=== PATIENT | male | born 1970 | race Caucasian/White ===

== ENCOUNTER 2019-11-19 17:07 | Outpatient (CLI) | payer OTHER, SELFPAY ==
[2019-11-20 14:58] LABS: SARS-CoV-2 RNA PCR Negative
== END 2019-11-19 17:08 | disposition home or self-care (01) ==
PROVIDERS: PCP Family Medicine; Visit Provider Family Medicine
DX: Z20.828 Contact with and (suspected) exposure to other viral communicable diseases (principal)
CPT/HCPCS: 87635; C9803; U0003

== ENCOUNTER 2019-12-20 15:03 | Outpatient (CLI) | payer OTHER, SELFPAY ==
--- NOTE | ~2019-12-20 | XR_ITS ---
EXAMINATION: XR thoracic spine 3V DATE: 12/20/2019 15:50 INDICATION: Intermittent upper back pain TECHNIQUE: AP and lateral views of the thoracic spine were obtained. COMPARISON: None. FINDINGS: There is no fracture, dislocation, or subluxation. The vertebral body heights and alignment are normal. There is mild loss of intervertebral disc space height at multiple levels in the thoraci c spine. Small degenerative osteophytes project from the anterior endplates of multiple vertebral bod ies. IMPRESSION: 1. Mild thoracic spondylosis without acute findings. Reviewed, dictated and finalized at location A.
== END 2019-12-20 15:04 | disposition home or self-care (01) ==
PROVIDERS: PCP Family Medicine; Visit Provider Family Medicine
DX: M54.6 Pain in thoracic spine (principal)
CPT/HCPCS: 72072

== ENCOUNTER 2020-10-30 15:13 | Emergency (ER) | payer OTHER, SELFPAY ==
--- NOTE | ~2020-10-30 | XR_ITS ---
XR ankle LT min 3V DATE: 10/30/2020 15:46 INDICATION: Rolled ankle. Lateral pain. TECHNIQUE: 4 views COMPARISON: None FINDINGS: No fracture or dislocation of the ankle or disruption of the ankle mortise. Mild plantar a nd posterior calcaneal enthesopathy. IMPRESSION: Mild calcaneal enthesopathy Reviewed, dictated and finalized at location B. IMPRESSION: Mild calcaneal enthesopathy
[2020-10-30 15:20] VITALS: BP 142/78; PULSE 79; RESP 18; TEMP 36.9; O2SAT 98
[2020-10-30 15:37] VITALS: BP 142/78; PULSE 79; RESP 18; TEMP 36.9; O2SAT 98
--- NOTE | 2020-10-30 15:59 | ED.LOWEXIN ---
HPI - Extremity Injury (Lower) General Chief Complaint: Extremity Injury, Lower Stated Complaint: left ankle injury Time Seen by Provider: 10/30/20 15:59 Source: patient and family History of Present Illness HPI Narrative: Patient presents with left ankle pain that radiates down to his left foot. Patient states he has had several injuries on and off for the past few months. Patient states he reinjured the foot last night getting out of the hot tub. No swelling no deformity no open areas noted. Related Data Home Medications Medication Instructions Recorded Confirmed methylphenidate HCl [Concerta] 18 mg PO DAILY 10/30/20 10/30/20 testosterone cypionate See Rx Instructions .ROUTE .COMPLEX 10/30/20 10/30/20 Allergies Allergy/AdvReac Type Severity Reaction Status Date / Time No Known Allergies Allergy Verified 10/30/20 15:33 Review of Systems Review of Systems: CONSTITUTIONAL: Denies fever, chills, or sweats. EYES: Denies visual changes, redness, or discharge. ENT: Denies rhinorrhea, congestion, sore throat, or otalgia. CARDIOVASCULAR: Denies chest pain, palpitations, or edema. RESPIRATORY: Denies cough or dyspnea. GASTROINTESTINAL: Denies abdominal pain, nausea, vomiting, or diarrhea. GENITOURINARY: Denies dysuria or hematuria. SKIN: Denies rash or itching. MUSCULOSKELETAL: Denies back pain, joint pain, or myalgia. NEUROLOGIC: Denies headache, numbness, or weakness. PSYCHIATRIC: Denies anxiety or depression. PMFSH Comments At time of signature, agree with nursing past medical, surgical, social and family history. There is no relevant family history pertinent to the presenting complaint Exam Narrative: GENERAL: Well-appearing, well-nourished, and in no acute distress. HEAD: Normocephalic, atraumatic. EYES: PERRLA and EOMI. ENT: Nares clear, no rhinorrhea or epistaxis. Mucous membranes moist. NECK: Supple. CHEST: Clear to auscultation. No respiratory distress. HEART: Regular rate and rhythm. No murmur heard. Normal peripheral pulses. ABDOMEN: Soft, nontender, nondistended, normal active bowel sounds. EXTREMITIES: Normal range of motion. No edema. ANKLE EXAM SKIN INTACT. NORMAL DP PULSE, NORMAL CAP REFILL. NORMAL SENSATION. SKIN: Warm, dry, no rash. NEURO: No focal deficits. Alert and oriented x3. Shay Coma Scale Eye Opening: Spontaneous 4 Shay Coma Scale Motor: Obeys Commands 6 Shay Coma Scale Verbal: Oriented 5 St[place]on Coma Scale Total 15 Course Vital Signs Vital signs: Vital Signs Temperature 36.9 C 10/30/20 15:20 Pulse Rate 79 10/30/20 15:20 Respiratory Rate 18 10/30/20 15:20 Blood Pressure 142/78 H 10/30/20 15:20 Pulse Oximetry 98 10/30/20 15:20 Temperature 36.9 C 10/30/20 15:37 Pulse Rate 79 10/30/20 15:37 Respiratory Rate 18 10/30/20 15:37 Blood Pressure 142/78 H 10/30/20 15:37 Pulse Oximetry 98 10/30/20 15:37 Please VIDAL schedule a followup visit with your personal physician for further evaluation and treatment. Including recheck and discussion of your blood pressure. If your symptoms persist, change or worsen significantly before you can contact your personal physician then please, without delay, go to the emergency department for further evaluation MDM - Extremity Injury (Lower) Differential Diagnosis Differential diagnosis: Likely ankle sprain and strain, acute internal derangement of knee, fracture of femur, fracture of hip, puncture wound of foot, fracture of toe and ankle fracture Imaging Data Attestation: I personally reviewed and interpreted this imaging study as follows: Critical Care Time Critical Care Time Critical Care Time: No Discharge Plan Discharge Clinical Impression: Ankle sprain and strain Patient Disposition: Home, Self-Care Condition: Stable Instructions: Antibiotic Form, Ankle Sprain (ED) Additional Instructions: Ice to the area 20-30 minutes 4-6 times a day Elevate above heart Elastic wrap or orthopedic sp
== END 2020-10-30 16:05 | disposition home or self-care (01) ==
PROVIDERS: Emergency Provider Nurse Practitioner Family; PCP Family Medicine
DX: S93.402A Sprain of unspecified ligament of left ankle, initial encounter (principal); S96.912A Strain of unspecified muscle and tendon at ankle and foot level, left foot, initial encounter; X58.XXXA Exposure to other specified factors, initial encounter; Z98.52 Vasectomy status
CPT/HCPCS: 73610; 99213; G0463

== ENCOUNTER 2021-11-12 12:51 | Outpatient (CLI) | payer OTHER, SELFPAY ==
[2021-11-12 17:43] LABS: Prostate Specific Antigen 2.4 ng/mL (< OR = 4.0)
== END 2021-11-12 12:52 | disposition home or self-care (01) ==
LOC: ANHLAB 12:56
PROVIDERS: Visit Provider Family Medicine
DX: Z12.5 Encounter for screening for malignant neoplasm of prostate (principal)
CPT/HCPCS: 36415; 84153; G0103

== ENCOUNTER 2022-05-10 07:47 | Outpatient (CLI) | payer OTHER, SELFPAY ==
[2022-05-10 08:00] LABS: Basophils Absolute Auto 0.06 K/mm3 (0.00-0.10); Basophils Percent Auto 0.9 % (0.0-1.0); Eosinophils Percent Auto 1.5 % (1.0-6.0); Hematocrit 52.8 % (40.0-54.0); Immature Granulocyte Absolute 0.02 K/mm3 (0.00-0.00); Immature Granulocyte Percent A 0.3 % (0.0-0.0); Lymphocytes Absolute Auto 2.07 K/mm3 (1.10-4.50); Lymphocytes Percent Auto 30.7 % (18.0-42.0); Mean Corpuscular HGB Conc 34.1 g/dL (32.0-36.0); Mean Platelet Volume 8.6 fl (8.7-11.0); Monocytes Absolute Auto 0.55 K/mm3 (0.10-0.90); Monocytes Percent Auto 8.2 % (2.0-11.0); Neutrophils Absolute Auto 3.9 K/mm3 (1.7-7.2); Neutrophils Percent Auto 58.4 % (50.0-70.0); Platelet Count Result 256 K/mm3 (150-420); Red Cell Distribution Width 13.2 % (11.6-14.4); White Blood Count 6.7 K/mm3 (4.8-10.8)
[2022-05-10 08:47] LABS: Alanine Aminotransferase 27 U/L (16-63); Albumin Level 4.2 g/dL (3.4-5.0); Alkaline Phosphatase 56 U/L (46-116); Anion Gap 8 mmol/L (8-16); Aspartate Amino Transferase 20 U/L (15-37); Bilirubin,Total 0.7 mg/dL (0.00-1.00); Blood Urea Nitrogen 19 mg/dL (7-18); Calcium 8.8 mg/dL (8.5-10.1); Carbon Dioxide 31 mmol/L (21-32); Chloride 103 mmol/L (98-108); Cholesterol 200 mg/dL (0-200); Estimated Glomerular Filt Rate 50; Glucose 90 mg/dL (70-99); HDL Direct 47 mg/dL (40-60); LDL Cholesterol Calculated 129 mg/dL (<130); Osmolality Calculated 296 mOsm/kg (285-295); Potassium 4.1 mmol/L (3.5-5.1); Prostate Specific Antigen 1.1 ng/mL (< OR = 4.0); Sodium 142 mmol/L (136-145); Total Protein 7.1 g/dL (6.4-8.2); Triglycerides 121 mg/dL (0-150)
[2022-05-14 13:49] LABS: DHEA-Sulfate 135 mcg/dL (38-313)
[2022-05-15 04:30] LABS: FSH <0.7 mIU/mL (1.6-8.0)
[2022-05-22 15:48] LABS: Estrogen 289.5 pg/mL (60-190)
== END 2022-05-10 07:48 | disposition home or self-care (01) ==
PROVIDERS: PCP Family Medicine; Visit Provider Family Medicine
DX: E78.2 Mixed hyperlipidemia (principal); N18.31 Chronic kidney disease, stage 3a; E29.1 Testicular hypofunction; N40.0 Benign prostatic hyperplasia without lower urinary tract symptoms
CPT/HCPCS: 36415; 80053; 80061; 82627; 82672; 83001; 84146; 84153; 84443; 85025

== ENCOUNTER 2023-10-06 09:28 | Outpatient (CLI) | payer OTHER, SELFPAY ==
[2023-10-06 09:41] LABS: Hematocrit 52.8 % (40.0-54.0); Hemoglobin 18.2 g/dL (14.0-18.0); Mean Corpuscular HGB Conc 34.5 g/dL (32-36); Mean Corpuscular Hemoglobin 30.3 pg (27.0-31.0); Mean Platelet Volume 8.4 fl (8.7-11.0); Platelet Count Result 262 K/mm3 (150-420); Red Cell Distribution Width 12.7 % (11.6-14.4); White Blood Count 11.1 K/mm3 (4.8-10.8)
[2023-10-06 10:05] LABS: Band Neutrophils Percent 0 % (0-6); Basophils Absolute Manual 0.11 K/mm3 (0-0.1); Basophils Percent Manual 1 % (0-1); Lymphocytes Absolute Manual 2.88 K/mm3 (1.1-4.5); Lymphocytes Percent Manual 26 % (18-44); Monocytes Absolute Manual 1.11 K/mm3 (0.1-0.90); Monocytes Percent Manual 10 % (3-9); Neutrophils Absolute Manual 6.99 K/mm3 (1.3-6.7); Neutrophils Percent Manual 63 % (46-73); Platelet Estimate Adequate (Adequate); Total Cells Counted 100
[2023-10-06 10:22] LABS: Anion Gap 8 mmol/L (4-12); Blood Urea Nitrogen 16 mg/dL (7-18); Calcium 9.1 mg/dL (8.5-10.1); Carbon Dioxide 31 mmol/L (21-32); Chloride 99 mmol/L (98-108); Estimated Glomerular Filt Rate > 60; Glucose 83 mg/dL (70-99); Osmolality Calculated 286 mOsm/kg (285-295); Potassium 4.7 mmol/L (3.5-5.1); Sodium 138 mmol/L (136-145)
== END 2023-10-06 09:29 | disposition home or self-care (01) ==
PROVIDERS: PCP Family Medicine; Visit Provider Family Medicine
DX: J36 Peritonsillar abscess (principal)
CPT/HCPCS: 36415; 80048; 85025

== ENCOUNTER 2024-05-24 13:34 | Outpatient (CLI) | payer OTHER, SELFPAY ==
[2024-05-24 14:01] LABS: Add Urine Microscopic? NO; Appearance Urine Clear (Clear); Bilirubin Urine Negative (Negative); Blood Urine Negative (Negative); Color Urine Light Yellow (Yellow); Glucose Urine UA Negative (Negative); Ketones Urine Negative (Negative); Leukocyte Esterase Ur Negative (Negative); Nitrate Urine Negative (Negative); Protein Urine Negative (Negative); Specific Grav Ur 1.015 (1.010-1.020); Urobilinogen Urine 0.2 mg/dL (0.2-1.0)
[2024-05-24 14:07] LABS: Basophils Absolute Auto 0.06 K/mm3 (0.00-0.10); Eosinophils Absolute Auto 0.08 K/mm3 (0.02-0.50); Eosinophils Percent Auto 1.4 % (1.0-6.0); Hematocrit 52.4 % (40.0-54.0); Hemoglobin 17.7 g/dL (14.0-18.0); Immature Granulocyte Absolute 0.01 K/mm3 (0.00-0.00); Immature Granulocyte Percent A 0.2 % (0.0-0.0); Lymphocytes Absolute Auto 1.33 K/mm3 (1.10-4.50); Lymphocytes Percent Auto 23.3 % (18.0-42.0); Mean Corpuscular HGB Conc 33.8 g/dL (32-36); Mean Corpuscular Hemoglobin 29.9 pg (27.0-31.0); Mean Corpuscular Volume 88.5 fL (78.0-102.0); Mean Platelet Volume 8.7 fl (8.7-11.0); Monocytes Absolute Auto 0.35 K/mm3 (0.10-0.90); Monocytes Percent Auto 6.1 % (2.0-11.0); Neutrophils Absolute Auto 3.89 K/mm3 (1.70-7.20); Platelet Count Result 258 K/mm3 (150-420); Red Blood Count 5.92 M/mm3 (4.70-6.10); White Blood Count 5.7 K/mm3 (4.8-10.8)
[2024-05-24 14:37] LABS: Alanine Aminotransferase 26 U/L (16-63); Alkaline Phosphatase 73 U/L (46-116); Anion Gap 8 mmol/L (4-12); Aspartate Amino Transferase 23 U/L (15-37); Bilirubin,Total 0.5 mg/dL (0.00-1.00); Blood Urea Nitrogen 10 mg/dL (7-18); Calcium 8.7 mg/dL (8.5-10.1); Carbon Dioxide 30 mmol/L (21-32); Chloride 105 mmol/L (98-108); Cholesterol 201 mg/dL (0-200); Estimated Glomerular Filt Rate > 60; Glucose 85 mg/dL (70-99); HDL Direct 54 mg/dL (40-60); LDL Cholesterol Calculated 123 mg/dL (<130); Osmolality Calculated 294 mOsm/kg (285-295); Potassium 4.7 mmol/L (3.5-5.1); Prostate Specific Antigen 2.1 ng/mL (< OR = 4.0); Sodium 143 mmol/L (136-145); Thyroid Stimulating Hormone 1.75 uIU/mL (0.36-3.74); Total Protein 6.9 g/dL (6.4-8.2); Triglycerides 122 mg/dL (0-150)
--- OUTSIDE RECORDS SUMMARY | 2024-05-24 15:35 | XMS_ITS | Clinical Summary ---
Author Organization [facility] Address [address] [place] [address] Care Team Providers Care Drywall Installer Name Role Phone Sudhir Silvestre MD Primary Care Provide r Allergies No known active allergies Medications OMEGA-3 FATTY ACIDS-FISH OIL ORAL Take by mouth daily Active Concerta 36 mg CR tablet Take 1 tablet (36 mg total) by mouth every morning 1 tab po am 2 Active multivitamin with minerals tablet Take 1 tablet by mouth daily Active needle, disp, 25 gauge (BD PrecisionGlide) 25 gauge x 1 needle Testosterone injection every 10days 2 Active sildenafiL, pulm.hypertensi on, (REVATIO) 20 mg tablet 2 Active testosterone cypionate (DEPO-TESTOTERO NE) 200 mg/mL injection 3 mL (600 mg total) 1 Injection every 10 days. 2 Active syringe with needle (BD Luer-Zi Syringe) 3 mL 18 x 1 1/2 syringe USE TO DRAW UP TESTOSTERONE E29.1 2 Active aspirin 81 mg enteric coated tablet Take 1 tablet (81 mg total) by mouth daily Active BD Luer-Zi Syringe 3 mL 20 gauge x 1 1/2 syringe USE TO INJECT TESTOSTERONE CYPIONATE DIRECTED EVERY 10 DAYS 2 Active tadalafiL (CIALIS) 5 mg tablet Take 1 tablet (5 mg total) by mouth daily 3 Active meloxicam (MOBIC) 15 mg tabletIndicatio ns:Acute pain of right shoulder,Rotato r cuff impingement syndrome of right shoulder Take 1 tablet (15 mg total) by mouth daily as needed for pain 30 tablet 3 Active Active Problems Problem Noted Date Diagnosed Date Erythrocytosis 04/26/2021 Immunizations Immunization Administration Dates Next Due Tdap 08/31/2020,06/12/2011 Surgical History Surgery Date Site/Laterality Comments KNEE ARTHROSCOPY W/ MENISCECTOMY 07/29/2016 - 08/28/2016 Right Medical History Medical History Date Comments Adhd Family History Medical History Relation Name Comments Arthritis Other Diabetes Other Heart disease Other Kidney disease Other Relation Name Status Comments Other Social History Tobacco Use Types Packs/Day Years Used Date Smoking Tobacco: Former Cigars Smokeless Tobacco: Never Tobacco Cessation:Counseling Given: Not Answered Personal Safety Answer Date Recorded Getting School Help Needed Not on file 04/05 Sex and Gender Information Value Date Recorded Sex Assigned at Not on file 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 Gender Identity Not on file Sexual Orientation Not on file Obstetrics History Last Filed Vital Signs Vital Sign Reading Time Taken Comments Blood Pressure 153/100 05/02/2023 1:02 PM JEEP DRIVER Pulse 80 05/02/2023 1:02 PM JEEP DRIVER Temperature - - Respiratory Rate - - Oxygen Saturation - - Inhaled Oxygen Concentration - - Weight 86.2 kg (190 lb) 05/02/2023 1:02 PM JEEP DRIVER Height 180.3 cm (5' 11 ) 05/02/2023 1:02 PM JEEP DRIVER Body Mass Index 26.5 05/02/2023 1:02 PM JEEP DRIVER Plan of Treatment Health Maintenance Due Date Last Done Comments Colon Cancer Screening-Colonoscopy 1969 Depression Screening 1969 Hepatitis C Screening 1969 Prostate Cancer Screening-PSA 1969 Hepatitis B Screening 12/22/1987 Regular Well Visit/Exam 18-64 12/22/1987 Zoster Vaccine (1 of 2) 12/22/2019 Covid-19 Vaccine (3 - 2023-2 5 season) 2023 01/13/2021, 12/25/2020 Influenza Vaccine (#1) 2023 DTaP/Tdap/Td Vaccine (3 - Td or Tdap) 08/31/2030 08/31/2020, 06/12/2011 Pneumococcal vaccine <65 Aged Out No longer eligible based on patient's age to complete this topic Insurance [facility] Care Teams Drywall Installer Relationship Specialty Start Date End Date Sudhir Silvestre MD [address] [place] [address] PCP - General Family Medicine 02/04/22
--- OUTSIDE RECORDS SUMMARY | 2024-05-24 15:35 | XMS_ITS | Clinical Summary ---
[facility] Address [address] [place] [address] Care Team Providers Care Rfid Developer Name Role Phone Sudhir Silvestre MD Primary Care Provider [phone] Allergies No known active allergies Medications sildenafiL, pulm.hypertension , (REVATIO) 20 mg Tablet Take 20 mg by mouth 1 time daily as needed. Active testosterone cypionate (DEPO-TESTOSTERON E) 200 mg/mL Oil Inject 200 mg by intramuscular injection every 10 days. Active multivitamins with minerals Tablet Take 1 Tablet by mouth daily. Active OMEGA-3 FATTY ACIDS-FISH OIL ORAL Take by mouth. Activ e MAGNESIUM CITRATE ORAL Take by mouth. Activ e BD PrecisionGlide 25 gauge x 1 Needle USE TO INEJCT TESTOSTERONE INTRAMUSCULARLY E29.1 08/14/19 22 Active BD Luer-Zi Syringe 3 mL 18 x 1 1/2 Syringe USE TO DRAW UP TESTOSTERONE E29.1 09/19/19 22 Active methylphenidate HCl (Concerta) 36 mg Extended Release tablet Take 36 mg by mouth. 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 Gender Identity Not on file Sexual Orientation Not on file Last Filed Vital Signs Vital Sign Reading Time Taken Comments Blood Pressure 140/97 12/13/2022 10:06 AM CDT Pulse 74 12/13/2022 10:05 AM CDT Temperature 36.5 C (97.7 F) 12/13/2022 10:05 AM CDT Respiratory Rate 16 12/13/2022 10:0 5 AM CDT Oxygen Saturation 100% 12/13/2022 10: 05 AM CDT Inhaled Oxygen Concentration - - Weight 81.6 kg (179 lb 12.8 oz) 023 10:05 AM CDT Height 180.3 cm (5' 11 ) 10/24/2021 1:22 PM CDT Body Mass Index 25.08 10/24/2021 1:22 PM CDT Plan of Treatment Health Maintenance Due Date Last Done Comments HEPATITIS B VACCINES (1 of 3 - 19+ 3-dose series) 1988 COLORECTAL SCREENING 2014 Colorectal Cancer Screening 2014 FIT-DNA Q 3 years 2014 FIT/FOBT Q 1 year 2014 Flex Sig/CT Colonography Q 5 years 2014 ZOSTER VACCINE (1 of 2) 12/22/2019 INFLUENZA VACCINE (#1) 2023 DTAP/TDAP/TD VACCINES (3 - Td or Tdap) 08/31/2030, 06/12/2011 Insurance Care Teams Rfid Developer Relationship Specialty Start Date End Date Sudhir Silvestre MD [address] [place] [address] PCP - General Family Practice 04/26/21
--- OUTSIDE RECORDS SUMMARY | 2024-05-24 15:35 | XMS_ITS | Referral Summary ---
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 Gender Identity Not on file Sexual Orientation Not on file Last Filed Vital Signs Vital Sign Reading Time Taken Comments Blood Pressure 153/100 05/02/2023 1:02 PM FILM COATER Pulse 80 05/02/2023 1:02 PM FILM COATER Temperature - - Respiratory Rate - - Oxygen Saturation - - Inhaled Oxygen Concentration - - Weight 86.2 kg (190 lb) 05/02/2023 1:02 PM FILM COATER Height 180.3 cm (5' 11 ) 05/02/2023 1:02 PM FILM COATER Body Mass Index 26.5 05/02/2023 1:02 PM FILM COATER Plan of Treatment Not on file Insurance [facility] [place] [address] [facility] PL[facility] Care Teams Reinforcement Maker Relationship Specialty Start Date End Date Sudhir Silvestre MD [address] [place], [place] [id number] PCP - General Family Medicine 02/04/22
[2024-05-26 02:53] LABS: DHEA-Sulfate 92 mcg/dL (32-279); Sex Hormone Binding Globulin 32 nmol/L (10-50)
[2024-05-26 03:04] LABS: FSH <0.7 mIU/mL (1.4-12.8); LH <0.2 mIU/mL (1.5-9.3)
== END 2024-05-24 13:35 | disposition home or self-care (01) ==
LOC: CHSLAB 13:37
PROVIDERS: PCP Family Medicine; Visit Provider Family Medicine
DX: N18.31 Chronic kidney disease, stage 3a (principal); E29.1 Testicular hypofunction; Z13.220 Encounter for screening for lipoid disorders; Z12.5 Encounter for screening for malignant neoplasm of prostate
CPT/HCPCS: 36415; 80053; 80061; 81003; 82627; 82670; 83001; 83002; 84153; 84270; 84402; 84403; 84443; 85025; G0103